=== PATIENT | male | born 1955 | race Caucasian/White ===

== ENCOUNTER 2023-09-27 04:36 | Emergency (ER) | payer OTHER ==
[~2023-09-27] VITALS: Ht 172.7 cm; Wt 90.7 kg
[2023-09-27 04:57] VITALS: BP_SYST 120; PULSE 96; RESP 20; TEMP 102.8; O2SAT 96
[2023-09-27 05:14] LABS: BILIRUBIN,URINE NEGATIVE (NEGATIVE); BLOOD, URINE 1+ (NEGATIVE); CLARITY/URINE CLOUDY (CLEAR); COLOR,URINE YELLOW (YELLOW); GLUCOSE,URINE NEGATIVE (NEGATIVE); KETONES,URINE NEGATIVE (NEGATIVE); LEUKOCYTE ESTERASE ,URINE 1+ (NEGATIVE); NITRITE, URINE POSITIVE (NEGATIVE); PROTEIN URINE 2+ (NEGATIVE)
[2023-09-27 05:26] LABS: COVID19 ANTIGEN SOFIA FIA NEGATIVE (NEGATIVE)
[2023-09-27 05:32] LABS: WBC,URINE >100 /HPF (0-3)
[2023-09-27 05:33] LABS: BACTERIA,URINE MANY /HPF (None Seen)
[2023-09-27] MEDS: ACETAMINOPHEN 500 MG TABLET PO ONE (05:46)
[2023-09-27 05:48] LABS: INFLUENZA TYPE A Negative (NEGATIVE); INFLUENZA TYPE B NEGATIVE (NEGATIVE)
[2023-09-27] MEDS ORDERED: IBUP-1971 PO (05:48)
[2023-09-27] MEDS ORDERED: CIPR500T5 PO (05:48)
[2023-09-27 05:56] VITALS: BP_SYST 120; PULSE 96; RESP 20; TEMP 102.8; O2SAT 96
== END 2023-09-27 05:59 | disposition home or self-care (01) ==
LOC: SED 04:36
DX: N39.0 Urinary tract infection, site not specified (principal); Z20.822 Contact with and (suspected) exposure to COVID-19; Z91.030 Bee allergy status; Z79.899 Other long term (current) drug therapy; Z79.2 Long term (current) use of antibiotics
CPT/HCPCS: 36415; 81000; 81001; 81015; 87086; 99283

== ENCOUNTER 2023-09-29 07:17 | Emergency (ER) | payer OTHER ==
[~2023-09-29] VITALS: Ht 172.7 cm; Wt 90.7 kg
[~2023-09-29 07:17] MED LIST: CIPR500T5 PO; IBUP-1971 PO
[2023-09-29 07:23] VITALS: BP_SYST 120; PULSE 56; RESP 16; TEMP 96.5; O2SAT 98
[2023-09-29 07:48] LABS: BASOPHILS % (AUTO) 0.2 % (0.0-2.0); EOSINOPHILS % (AUTO) 0.2 % (0.0-4.0); HEMATOCRIT 40.6 % (36-54); HEMOGLOBIN 13.7 g/dL (14.0-18.0); LYMPHOCYTES # (AUTO) 1.3 K/uL (1.0-5.5); LYMPHOCYTES % (AUTO) 9.9 % (20.5-51.5); MEAN CORPUSCULAR HEMOGLOBIN 32 pg (27-31); MEAN CORPUSCULAR HGB CONC 34 % (32-36); MEAN CORPUSCULAR VOLUME 94 fL (79.0-98.0); MONOCYTES # (AUTO) 1.5 K/uL (0.0-1.0); MONOCYTES % (AUTO) 11.8 % (1.7-9.3); NEUTROPHILS # (AUTO) 10.1 K/uL (1.8-7.7); NEUTROPHILS % (AUTO) 77.9 % (40.0-70.0); PLATELET COUNT (AUTO) 196 K/uL (130-430); RED BLOOD CELL COUNT(AUTO) 4.34 MIL/uL (4.2-6.2); RED CELL DISTRIBUTION WIDTH 13.9 % (9.0-15.0); WHITE BLOOD COUNT (AUTO) 12.9 K/uL (4.8-10.8)
[2023-09-29 08:00] LABS: CALCIUM 9.4 mg/dL (8.4-11.0); CREATININE 1.14 mg/dL (0.55-1.30); POTASSIUM 3.9 mmol/L (3.5-5.1)
[2023-09-29 08:01] LABS: BILIRUBIN,URINE NEGATIVE (NEGATIVE); BLOOD, URINE NEGATIVE (NEGATIVE); CLARITY/URINE CLEAR (CLEAR); COLOR,URINE YELLOW (YELLOW); GLUCOSE,URINE NEGATIVE (NEGATIVE); KETONES,URINE 1+ (NEGATIVE); LEUKOCYTE ESTERASE ,URINE 1+ (NEGATIVE); NITRITE, URINE NEGATIVE (NEGATIVE); PROTEIN URINE 1+ (NEGATIVE); UROBILINOGEN,URINE 0.2 (0.2-1.0)
[2023-09-29 08:16] LABS: BACTERIA,URINE None Seen /HPF (None Seen); RBC,URINE 0-3 /HPF (0-3)
[2023-09-29 10:46] VITALS: BP_SYST 130; PULSE 56; RESP 16; TEMP 96.5; O2SAT 98
[2023-09-29] MEDS ORDERED: CEPH-548 PO (11:09)
== END 2023-09-29 11:47 | disposition home or self-care (01) ==
LOC: SED 07:17
DX: R33.9 Retention of urine, unspecified (principal); R31.9 Hematuria, unspecified; Z91.030 Bee allergy status; Z79.899 Other long term (current) drug therapy; Z79.2 Long term (current) use of antibiotics
CPT/HCPCS: 36415; 80048; 81000; 81001; 81015; 83605; 85025; 87086; 99284